=== PATIENT | male | born 1995 | race Caucasian/White ===

== ENCOUNTER 2016-12-09 06:26 | Day surgery (SDC) | payer BC ==
[~2016-12-09 06:26] MED LIST: Lidocaine 1%/Sod Bicarbonate in NS 8.4% 1 ML Syringe PRN; Sodium Chloride 0.9% 10 ML Syringe FLUSH PRN
[2016-12-09] MEDS ORDERED: Lidocaine 1% 6 ML ONE (06:46)
[2016-12-09] MEDS ORDERED: ceFAZolin 1 GM Vial ONE (06:46)
[2016-12-09] MEDS ORDERED: Lactated Ringers 1,000 ML ONE (06:46)
[2016-12-09] MEDS ORDERED: Dexamethasone 4 MG/ML SDV ONE ×2 (06:46→07:31)
[2016-12-09] MEDS ORDERED: Rocuronium 50 MG/5 ML Vial ONE ×2 (06:46→08:40)
[2016-12-09] MEDS ORDERED: Ondansetron 4 MG/2 ML SDV ONE (06:46)
[2016-12-09] MEDS ORDERED: Propofol 200 MG/20 ML SDV ONE ×2 (06:47→08:03)
[2016-12-09] MEDS ORDERED: HYDROmorphone 1 MG/ML Syringe ONE (06:47)
[2016-12-09] MEDS ORDERED: fentaNYL 250 MCG/5 ML SDV ONE ×2 (06:48→08:51)
[2016-12-09] MEDS ORDERED: Midazolam 1 MG/ML 2 ML SDV ONE (06:48)
[2016-12-09] MEDS: Lactated Ringers 1,000 ML IV SCH ×2 (06:50→11:40)
--- NOTE | 2016-12-09 07:02 | PCM.PREANE ---
Preanesthetic Assessment - Anesthesia/Transfusion/Family Hx Anesthesia History: No Prior Anesthesia Family History of Anesthesia Reaction: No Transfusion History: No Prior Transfusion(s) Intubation History: Unknown - Review of Systems Pulmonary: No Symptoms (Asthma- not used inhaler in years.), Cough Cardiovascular: No Symptoms Gastrointestinal: No symptoms Neurological: No Symptoms Other: Reports: None - Physical Assessment NPO Status Date: 12/08/16 NPO Status Time: 21:30 Pulse: 86 O2 Sat by Pulse Oximetry: 94 Respiratory Rate: 16 Blood Pressure: 159/87 Temperature: 36.8 C Height: 1.75 m Weight: 112.491 kg ASA Class: 2 Mental Status: Alert & Oriented x3 Airway Class: Mallampati = 2 Dentition: Reports: Normal Dentition, Caries Thyro-Mental Finger Breadths: 3 Mouth Opening Finger Breadths: 3 ROM/Head Extension: Full Lungs: Clear to auscultation, Normal respiratory effort Cardiovascular: Regular Rate, Regular Rhythm - Lab Values: Lab values reviewed and noted and within normal values, except: WBC: 10.73 elevated HGB: 17.7 elevated Anion Gap: 15.4 elevated. MRSA screen is negative. - Imaging/EKG Impressions: CXR: negative EKG: SR= 80 - Allergies Allergies/Adverse Reactions: Allergies Allergy/AdvReac Type Severity Reaction Status Date / Time No Known Allergies Allergy Verified 12/08/16 15:35 - Anesthesia Plan Pre-Op Medication Ordered: None - Acknowledgements Anesthesia Type Planned: General Anesthesia (with left interscalene block for post operative pain control requested by Dr. Post.) Pt an Appropriate Candidate for the Planned Anesthesia: Yes Alternatives and Risks of Anesthesia Discussed w Pt/Guardian: Yes Pt/Guardian Understands and Agrees with Anesthesia Plan: Yes PreAnesthesia Questionnaire HEENT History: Reports: Allergic rhinitis Cardiovascular History: Reports: None Respiratory History: Reports: Asthma, Other (see below) Other Respiratory History: cough Gastrointestinal History: Reports: None Genitourinary History: Reports: None CUT FILER History: Reports: None Musculoskeletal History: Reports: None Neurological History: Reports: None Psychiatric History: Reports: None Endocrine/Metabolic History: Reports: None Hematologic History: Reports: None Immunologic History: Reports: None Oncologic (Cancer) History: Reports: None Dermatologic History: Reports: None - Past Surgical History Head Surgeries/Procedures: Reports: None - SUBSTANCE USE Smoking Status *Q: Never Smoker Recreational Drug Use History: No - HOME MEDS Home Medications: Home Meds Albuterol Sulfate [Proventil Hfa] 2 inhalation IH ASDIRECTED PRN 12/09/16 [ History] - CURRENT (IN HOUSE) MEDS Current Meds: Current Medications Lactated Ringer's (Ringers, Lactated) 1,000 mls @ 125 mls/hr IV ASDIRECTED ADALBERTO Stop: 12/09/16 23:00 Lidocaine/Sodium Bicarbonate (Buffered Lidocaine 1% In Ns 8.4%) 0.25 ml .XX ONETIME PRN PRN Reason: Prior to IV Start Stop: 12/09/16 18:00 Sodium Chloride (Saline Flush) 10 ml FLUSH ASDIRECTED PRN PRN Reason: Keep Vein Open Stop: 12/09/16 18:00 Discontinued Medications Cefazolin Sodium (Ancef) Confirm Administered Dose 2 gm .ROUTE .STK-MED ONE Stop: 12/09/16 06:47 Dexamethasone (Dexamethasone) Confirm Administered Dose 4 mg .ROUTE .STK-MED ONE Stop: 12/09/16 06:47 Fentanyl (Sublimaze) Confirm Administered Dose 250 mcg .ROUTE .STK-MED ONE Stop: 12/09/16 06:49 Hydromorphone HCl (Dilaudid) Confirm Administered Dose 1 mg .ROUTE .STK-MED ONE Stop: 12/09/16 06:48 Lidocaine HCl (Xylocaine-Mpf 1%) Confirm Administered Dose 6 mls @ as directed .ROUTE .STK-MED ONE Stop: 12/09/16 06:47 Lactated Ringer's (Ringers, Lactated) Confirm Administered Dose 1,000 mls @ as directed .ROUTE .STK-MED ONE Stop: 12/09/16 06:47 Midazolam HCl (Versed 1 Mg/Ml) Confirm Administered Dose 2 mg .ROUTE .STK-MED ONE Stop: 12/09/16 06:49 Ondansetron HCl (Zofran) Confirm Administered Dose 4 mg .ROUTE .STK-MED ONE Stop: 12/09/16 06:47 Propofol (Diprivan 20 Ml) Confirm Administered Dose 200 mg .ROUTE .STK-MED ONE Stop: 12/09/16 06:48 Rocuronium [place] (Zemuron) Confirm Administered Dose 50 mg .ROUTE .STK-MED ONE Stop: 12/09/16 06:47
[2016-12-09] MEDS ORDERED: Lidocaine 1% 4 ML ONE (07:08)
[2016-12-09] MEDS ORDERED: EPINEPHrine 1:1000 1 MG/ML SDV ONE (07:08)
[2016-12-09] MEDS ORDERED: Ropivacaine 0.5% 5 MG/ML 30 ML SDV ONE (07:08)
[2016-12-09] MEDS ORDERED: Phenylephrine/Normal Saline 100 MCG/ML 10 ML Syringe ONE (08:32)
--- NOTE | 2016-12-09 08:45 | PCM.SN ---
- Free Text/Narrative Note: Note: 12/09/2016 0800 136/80 89 97% 19 Surgeon and pt request post-op pain control for left shoulder surgery risk of block failure, facial numbness, site infection, and chronic pain discussed with pt and agreed to proceed. All standard monitors est. EKG, BP, Pulse Ox, 2ml O2 and 2ml versed, 2ml fentanyl pre-op dx. left shoulder fracture post-op dx ORIF left shoulder tuberosity pt for interscalene block placement all standard monitors est. pt ID time out performed IV sedation 2ml versed, 2ml fentanyl, 2L NC O2, sterile prep and drape of right neck and shoulder U/S placed with visualization of brachial plexus from clavicle to cricoid local skin infiltration 22ga. Stimplex A insulated needle visualized at brachial plexus nerve stimulator at .9 Christine Amps stop at .34 Chrisitne Amps with good bicep twitch with 1ml NaCl and lose of twitch neg aspirations every 5ml of 0.5% ropivacaine and 1:200,000 epi total of 30ml injected all done with U/S guidance needle withdrawn no complications noted pt tolerated procedure well block settling in start procedure at 0725 end procedure at 0748 142/64 96 100% 17
[2016-12-09] MEDS: Bupivacaine 0.25% 30 ML SDV ONE ×2 (08:48→09:45)
[2016-12-09] MEDS ORDERED: Ondansetron 4 MG/2 ML SDV IVPUSH PRN (08:51)
[2016-12-09] MEDS ORDERED: Phenylephrine 1 MG in Sodium Chloride 0.9% 10 ML IV SCH (09:00)
[2016-12-09] MEDS ORDERED: Neostigmine Methylsulfate 1 MG/ML 5 ML Syringe ONE (09:05)
[2016-12-09] MEDS ORDERED: Albuterol 0.083% 2.5 MG/3 ML Neb Soln NEB PRN (10:08)
--- NOTE | 2016-12-09 10:09 | PCM.POSTAN ---
POST ANESTHESIA ASSESSMENT - MENTAL STATUS Mental Status: alert - VITAL SIGNS Pulse Rate: 97 SaO2: 93 Resp Rate: 17 Blood Pressure: 158/93 Temperature: 37.5 C - RESPIRATORY Respiratory Status: respiratory rate WNL, airway patent, O2 saturation stable, supplemental oxygen - CARDIOVASCULAR CV Status: pulse rate WNL, blood pressure stable - GASTROINTESTINAL GI Status: no symptoms - POST OP HYDRATION Hydration Status: adequate & stable
[2016-12-09] MEDS: fentaNYL 100 MCG/2 ML SDV IVPUSH PRN ×3 (10:13→11:28)
[2016-12-09] MEDS: HYDROmorphone 0.5 MG/0.5 ML Syringe IVPUSH PRN ×2 (10:20→10:35)
--- NOTE | 2016-12-09 10:26 | CR ---
Left shoulder: Multiple fluoroscopic spot views are obtained utilizing C-arm device during operative fixation of left shoulder fracture. Study shows placement of plate and screws within previous greater tuberosity fracture. Fluoroscopy time is given as 27.9 seconds. Impression: 1. Findings as noted above. Diagnostic code #2
[2016-12-09] MEDS ORDERED: Labetalol 100 MG/20 ML MDV ONE (11:01)
[2016-12-09] MEDS: Labetalol 100 MG/20 ML MDV IVPUSH ONE ×2 (11:07→11:20)
--- NOTE | 2016-12-09 12:03 | PCM48HPAN ---
Post Anesthesia Note - EVALUATION WITHIN 48HRS OF ANESTHETIC Vital Signs in Normal Range: Yes Patient Participated in Evaluation: Yes Respiratory Function Stable: Yes Airway Patent: Yes Cardiovascular Function Stable: Yes Hydration Status Stable: Yes Pain Control Satisfactory: Yes Nausea and Vomiting Control Satisfactory: Yes Mental Status Recovered: Yes - COMMENTS/OBSERVATIONS Free Text/Narrative:: Patient states pain was 2/10 but after repositioning pain has increased to 5/10. No other c/o noted by patient.
[2016-12-09 12:27] VITALS: BP 149/72
[2016-12-09] MEDS ORDERED: Acetaminophen/HYDROcodone 325-5 MG Tab PO ONE (13:00)
--- NOTE | 2016-12-12 18:23 | PCM.OPNOTE ---
- General Post-Op/Procedure Note Date of Surgery/Procedure: 12/09/16 Operative Procedure(s): open reduction internal fixtation of left greater tuberosity humeral fracture Pre Op Diagnosis: left greater tuberosity humeral fracture Post-Op Diagnosis: Same Anesthesia Technique: General ET tube, Local Primary Surgeon: Giuseppe Post Anesthesia Provider: Deb Pastor [employer] Pump Tender: Kyra Jacobo EBL in mLs: 150 Complications: None Condition: Good
--- NOTE | 2016-12-12 19:32 | OR ---
DATE OF OPERATION: 12/09/2016 SURGEON: Giuseppe Post MD OPERATION PERFORMED: Open reduction and internal fixation, left humeral greater tuberosity fracture. PREOPERATIVE DIAGNOSIS: Left greater tuberosity humeral fracture. POSTOPERATIVE DIAGNOSIS: Left greater tuberosity humeral fracture. ANESTHESIA: General endotracheal intubation with local. ANESTHESIA PROVIDER: Deb Pastor CRNA. MACHINE TRY OUT SETTER: Kyra Jacobo LPN. ESTIMATED BLOOD LOSS: 150 mL. COMPLICATIONS: None. CONDITION: Stable. DESCRIPTION OF PROCEDURE: The patient was identified in the preop holding area. Proper site was marked and identified by the surgeon. The patient was taken back to the operating theater. After adequate anesthesia, the patient's left shoulder was then sterilely prepped and draped in the usual sterile fashion. OR time-out was performed. The patient received 2 g IV Ancef. At this time, the patient was placed in reverse Trendelenburg position and anterior lateral incision was made starting at the anterior portion of the acromion distally 5 cm making sure not to go past the 5 cm quique on the skin incision to protect the axillary nerve. At this time, the interval between the anterior and midportion of the deltoid was identified and this was taken down to the fascia. The fascia was incised. The greater tuberosity fracture was identified. It was noted to be significantly comminuted at this time. It was irrigated and curetted of fracture hematoma. Next, two #5 FiberWire stitches were placed through the rotator cuff just proximal to the greater tuberosity fracture. Next, a [place] 3-hole proximal humeral locking plate was placed. The sutures were then placed through the suture holes of the locking plate and it was positioned under direct C-arm fluoroscopy with direct bony contact. It was found to have adequate positioning. The plate was utilized secondary to compression of the comminuted fracture after getting a hold of the sutures. It was found to have adequate reduction on both AP and lateral views. At this time, a nonlocking 3.5 cortical screw was placed in the shaft. Next, a proximal locking screw was placed along with another proximal locking screw, and then 2 more nonlocking cortical screws were placed in the shaft. At this time, the suture limbs were tied under tension and was found to have almost anatomic mosque of the greater tuberosity in both AP and lateral views. Again, retraction was done to be able to do the distal screw holes, but we made sure to protect the deltoid as well as the axillary nerve with just gross traction and abduction in the arm to release tension making sure not to split the muscle fibers greater than 5 cm with just gentle traction. At this time, adequate saline was irrigated through the wound. A 0 Vicryl was used for closure of the deltoid fascia, 2-0 Vicryl was used subcutaneously, and Monocryl was used for the skin. Dermabond dressing and sterile soft dressing was applied. The patient was placed in a pillow sling and sent to PACU in stable condition. MMODAL /[id number]
== END 2016-12-09 13:35 | disposition home or self-care (01) ==
LOC: JD.SDS 06:26
PROVIDERS: ATTEND Orthopaedic Surgery
DX: S42.252A Displaced fracture of greater tuberosity of left humerus, initial encounter for closed fracture (principal); J45.909 Unspecified asthma, uncomplicated; Z79.899 Other long term (current) drug therapy
CPT/HCPCS: 23630; 76000; A9270; J0171; J0690; J1100; J1170; J2250; J2405; J2710; J2795; J3010; J7120; 01630; 64415; C1713; J2704; J3490